=== PATIENT | male | born 1980 | race American Indian/Alaskan Native ===

== ENCOUNTER 2017-10-04 19:54 | Inpatient (IN) | payer OTHER ==
[2017-10-04 21:07] LABS: Bacteria,Urine 1+ /HPF (Negative); Bilirubin,Urine NEG (Negative); Blood,Urine SM (Negative); Color,Urine Yellow (Yellow); Mucus,Urine FEW /HPF; Nitrite,Urine NEG (Negative); Protein,Urine <15 mg/dL mg/dL (Negative); Urobilinogen,Urine < 2.0 mg/dL (<2.0)
[2017-10-04 21:12] LABS: Basophils % (Auto) 0.3 % (0.0-1.8); Eosinophils # (Auto) 0.1 K/mm3 (0.0-0.4); Eosinophils % (Auto) 1.4 % (0.0-4.3); Hematocrit 33.6 % (35.5-45.6); Hemoglobin 10.7 gm/dl (11.8-15.2); Lymphocytes # (Auto) 2.1 K/mm3 (1.2-5.4); Lymphocytes % (Auto) 26.3 % (13.4-35.0); Mean Corpuscular HGB Conc 32 % (32-34); Mean Corpuscular Hemoglobin 29 pg (28-32); Mean Corpuscular Volume 91 fl (84-94); Monocytes # (Auto) 0.7 K/mm3 (0.0-0.8); Platelet Count 195 K/mm3 (140-440); Red Cell Distribution Width 13.4 % (13.2-15.2)
[2017-10-04 21:27] LABS: BUN/Creatinine Ratio 12; Blood Urea Nitrogen 12 mg/dL (9-20); Calcium 8.5 mg/dL (8.4-10.2); Hemolysis Index 3
[2017-10-04] MEDS ORDERED: DILAUDID IV ONE (22:37)
[2017-10-04] MEDS ORDERED: ZOFRAN IV ONE (22:38)
--- NOTE | 2017-10-04 22:54 | Emergency Department Report ---
ED General Adult HPI - General Chief complaint: Extremity Injury, Lower Stated complaint: BODY PAIN,SWOLLEN ALL OVER Time Seen by Provider: 10/04/17 21:45 Source: patient Mode of arrival: Ambulatory Limitations: No Limitations - History of Present Illness Initial comments: This is a 37-year-old male diabetic who presents with bilateral lower extremity swelling as well as scrotal swelling. He states that about a month ago he noticed a blister on his left thigh. He said this burst and there was some clear drainage that followed. However the patient noted that swelling continued in the thigh and then in the groin and then both lower extremities. Today he states that he cannot walk due to the swelling in his groin and lower extremity. He denies fever at this time. -: Gradual Location: genitals, lower extremity Severity scale (0 -10): 10 Quality: constant Consistency: constant Improves with: none Worsens with: none Associated Symptoms: denies other symptoms Treatments Prior to Arrival: none - Related Data Allergies Allergy/AdvReac Type Severity Reaction Status Date / Time No Known Allergies Allergy Unverified 10/04/17 20:03 ED Review of Systems ROS: Stated complaint: BODY PAIN,SWOLLEN ALL OVER Other details as noted in HPI Comment: All other systems reviewed and negative Constitutional: see HPI ENT: as per HPI Respiratory: no symptoms reported Cardiovascular: as per HPI Endocrine: see HPI Gastrointestinal: as per HPI Genitourinary: as per HPI Musculoskeletal: as per HPI Skin: as per HPI Neurological: as per HPI Psychiatric: as per HPI Hematological/Lymphatic: as per HPI ED Past Medical Hx - Past Medical History Previous Medical History?: Yes Hx Diabetes: Yes - Surgical History Past Surgical History?: Yes Additional Surgical History: Tonsilectomy - Social History Smoking Status: Current Every Day Smoker Substance Use Type: None ED Physical Exam - General Limitations: No Limitations General appearance: alert, in distress - Head Head exam: Present: atraumatic - Eye Eye exam: Present: normal appearance, PERRL, EOMI - ENT ENT exam: Present: normal exam - Neck Neck exam: Present: normal inspection - Respiratory Respiratory exam: Present: normal lung sounds bilaterally. Absent: respiratory distress, wheezes, rales, rhonchi, stridor - Cardiovascular Cardiovascular Exam: Present: regular rate, normal rhythm, normal heart sounds - GI/Abdominal GI/Abdominal exam: Present: soft, normal bowel sounds. Absent: distended, tenderness, guarding, rebound, rigid - exam: Present: scrotal swelling - Extremities Exam Extremities exam: Present: other (edema to the lower extremities bilaterally, ulceration on the right lower extremity) ED Course Vital Signs 10/04/17 10/04/17 10/04/17 20:05 20:30 20:37 Temperature 97.8 F 98.1 F Pulse Rate 114 H 108 H 107 H Pulse Rate [ From Monitor] Respiratory 18 19 22 Rate Blood Pressure 144/81 O2 Sat by Pulse 98 97 Oximetry 10/04/17 10/04/17 10/04/17 20:58 21:00 21:16 Temperature Pulse Rate 107 H 104 H 113 H Pulse Rate [ From Monitor] Respiratory 16 31 H Rate Blood Pressure 143/87 143/87 143/87 O2 Sat by Pulse 99 99 Oximetry 10/04/17 10/04/17 10/04/17 21:30 21:46 23:06 Temperature Pulse Rate 112 H Pulse Rate [ 108 H From Monitor] Respiratory 24 19 Rate Blood Pressure 143/87 143/87 O2 Sat by Pulse 99 98 Oximetry - Reevaluation(s) Reevaluation #1: 10/04/17 22:55 The patient has developed a cellulitis that appears to originally started in the right lower extremity and spread to the groin and the left lower extremity. I discussed the findings with the hospitalist. We will go ahead and start the patient on Unasyn and give pain medications. I explained to the patient that he will need to be admitted. He stresses understanding. 10/04/17 23:15 ED Medical Decision Making - Lab Data Result diagrams: 10/04/17 20:35 10/04/17 20:35 Critical care attestation.: If time is entered above; I have spent that time in minutes in the direct care of this critically ill patient, excluding procedure time. ED Disposition Clinical Impression: Abscess or cellulitis of groin Disposition: OP ADMIT IP TO THIS HOSP Is pt being admited?: Yes Condition: Stable Referrals: LOUIE THAYER MD [Primary Care Provider] - 3-5 Days
--- NOTE | 2017-10-04 23:55 | Event Note ---
Date: 10/04/17 See dictated H/p in reports Scrotal cellulitis IDDM Rt Leg ulcer
[2017-10-05] MEDS ORDERED: ZOFRAN IV PRN (02:01)
[2017-10-05] MEDS ORDERED: MILK OF MAGNESIA PO PRN (02:01)
[2017-10-05] MEDS ORDERED: TYLENOL PO PRN (02:01)
[2017-10-05] MEDS ORDERED: DULCOLAX PR PRN (02:01)
[2017-10-05] MEDS ORDERED: PERCOCET 5/325 PO PRN (02:02)
[2017-10-05] MEDS ORDERED: AMBIEN PO PRN (02:02)
[2017-10-05] MEDS ORDERED: MORPHINE IV PRN (02:17)
[2017-10-05] MEDS ORDERED: NACL 0.9% 1000 ML 1,000 ML IV SCH (03:00)
[2017-10-05] MEDS ORDERED: VANCOMYCIN PHARMACY TO DOSE IV SCH (03:00)
[2017-10-05] MEDS ORDERED: VANCOMYCIN 1,500 MG in NACL 0.9% 500 ML 500 ML IV ONE (03:00)
[2017-10-05] MEDS: UNASYN/NS 3 GM/100 ML 3 GM/100 ML BAG IV SCH ×4 (03:14→22:36)
[2017-10-05] MEDS: DILAUDID IV PRN ×4 (05:20→23:07)
--- NOTE | 2017-10-05 07:40 | History and Physical Report ---
CHIEF COMPLAINT: Redness and swelling of the scrotum for the last 3-4 days. Also, right leg ulcer for 1 month. HISTORY OF PRESENT ILLNESS: A 37-year-old -[place] male with history of diabetes, comes in for a small ulcer on the right lower extremity mid part of the legs for the last one month. It looks like it is healing. In the meantime, over the last 4 days he developed severe scrotal swelling and penile swelling with spread of the infection to the upper thighs, both thighs. No relation to the right lower leg extremity ulcer. Low-grade fever is present. Pain is about 8 on a scale of 1-10, especially in the scrotum. He cannot walk due to the swelling in his groin and the lower extremity and has difficulty walking. No shortness of breath, no chest pain. No palpitations. No nausea, no vomiting. PAST MEDICAL HISTORY: Significant for diabetes. PAST SURGICAL HISTORY: Tonsillectomy. SOCIAL HISTORY: He smokes about a pack a day. FAMILY HISTORY: Hypertension. REVIEW OF SYSTEMS: Significant for swelling of the scrotum and redness and swelling of the penis with pain about 8/10 with infection spreading into both upper thighs. Otherwise, review of systems is essentially negative. PHYSICAL EXAMINATION: GENERAL: Young male, cooperative during examination. VITAL SIGNS: Blood pressure is 117/75, temperature is 97.5, pulse is 89, pulse rate is 108. HEENT: Unremarkable. Pupils are equal and reactive. NECK: Supple, no lymphadenopathy, no thyromegaly. LUNGS: Clear to auscultation and percussion. Good air entry. CARDIOVASCULAR: S1, S2 heard. No gallop, no murmur, no rub. Apical impulse in left fifth intercostal space and midclavicular line. ABDOMEN: Soft and benign. PELVIS: Scrotum is very enlarged, red and inflamed. Penis is also swollen. Near paraphimosis present. EXTREMITIES: Redness of the upper thigh present. Both sides, indurated. A 3 cm x 3 cm ulcer on the right lower extremity and lateral part of the leg. Stage 2 ulcer. Healing. Pedal pulses are well felt. SKIN: Otherwise normal. LABORATORY DATA: Significant for white count of 8100, hemoglobin of 10.7, hematocrit of 33.6, platelet count of 195,000. pH is 7.31. Sodium is 141, potassium is 4.2, BUN and creatinine is 12 and 1.0. Glucose is 146. Urine WBCs 14. ASSESSMENT AND PLAN: 1. Scrotal cellulitis with paraphimosis. Urology consult requested. The patient started on IV Unasyn and IV vancomycin for possible staph infection. Also, ID consult requested. Morphine for pain. 2. Right leg ulcer, healing. Wound Care consult requested. Wound care. 3. Same IV antibiotics, Unasyn and vancomycin to be continued. 4. Insulin-dependent diabetes. The patient is a poor historian, he does not tell me what dose he is taking. We will put him on coverage. Check hemoglobin A1c and then go on to 70/30 or basal bolus insulin. Depending on the patient's convenience and his education level. 5. Deep venous thrombosis prophylaxis, Lovenox 40 mg subcutaneous daily. JOB# [id number] SERGEY/NTS
--- NOTE | 2017-10-05 08:15 | Progress Note ---
Assessment and Plan -Scrotal cellulitis Local wound care Cound cx Continue with Vanc and Unisyn - Suprapubic mass: ? retention Will obtain a bladder Ultrasound. If no retention then a CT abdomnen and pelvis - IDDM SSI consistent CHO diet. A1c - 14.6% Alonzo pedal edema - Rt Leg ulcer Likely secondary to scrotal cellulites - DVT PPX with lovenox and GI with pepcid Discussed with pt and his mother who was in the room regarding, the Mx plan. Both expressd understanding PS Bladder outlet obstruction from CT abdomen and pelvis with mild alonzo hydronephrosis I suspect a pelvis mass causing alonzo pedal edema. Early pneumonia from CT abdomen: Will obtain CXR Subjective Date of service: 10/05/17 Principal diagnosis: scrotal cellulitis Interval history: Still has swelling of the scrotum with pain. Uncotrolled DM. No polyuria or polydysia Objective - Constitutional Vitals: Vital Signs - 12hr 10/04/17 10/04/17 10/04/17 20:30 20:37 20:58 Temperature 98.1 F Pulse Rate 108 H 107 H 107 H Pulse Rate [ From Monitor] Respiratory 19 22 Rate Blood Pressure 143/87 O2 Sat by Pulse 97 Oximetry 10/04/17 10/04/17 10/04/17 21:00 21:16 21:30 Temperature Pulse Rate 104 H 113 H 112 H Pulse Rate [ From Monitor] Respiratory 16 31 H 24 Rate Blood Pressure 143/87 143/87 143/87 O2 Sat by Pulse 99 99 99 Oximetry 10/04/17 10/04/17 10/04/17 21:46 22:00 23:06 Temperature Pulse Rate Pulse Rate [ 108 H From Monitor] Respiratory 19 Rate Blood Pressure 143/87 143/87 O2 Sat by Pulse 98 98 Oximetry 10/05/17 10/05/17 10/05/17 01:47 02:52 03:22 Temperature 97.5 F L Pulse Rate 89 Pulse Rate [ From Monitor] Respiratory 16 18 18 Rate Blood Pressure 117/75 O2 Sat by Pulse 98 Oximetry 10/05/17 10/05/17 05:20 05:50 Temperature Pulse Rate Pulse Rate [ From Monitor] Respiratory 18 18 Rate Blood Pressure O2 Sat by Pulse Oximetry General appearance: Present: no acute distress - EENT Eyes: PERRL, EOM intact - Neck Neck: supple, normal ROM - Respiratory Respiratory: bilateral: CTA - Cardiovascular Rhythm: regular Heart Sounds: Present: S1 & S2. Absent: gallop, rub Extremities: pulses intact, normal color (ulcer in the right leg), Full ROM Extremity abnormal: edema - Gastrointestinal General gastrointestinal: Present: soft, non-tender, non-distended, normal bowel sounds - Genitourinary Male genitourinary: normal - Integumentary Integumentary: clear, warm, dry - Musculoskeletal Musculoskeletal: 1, strength equal bilaterally - Neurologic Neurologic: moves all extremities - Psychiatric Psychiatric: memory intact, appropriate mood/affect, intact judgment & insight - Labs CBC & Chem 7: 10/04/17 20:35 10/05/17 18:12 Labs: Abnormal lab results 10/04/17 10/04/17 10/04/17 Range/Units 20:09 20:35 20:35 Hgb 10.7 L (11.8-15.2) gm/dl Hct 33.6 L (35.5-45.6) % [place] % (Auto) 9.0 H (0.0-7.3) % VBG pH (7.320-7.420) Glucose 146 H (75-100) mg/dL POC Glucose 222 H (70-105) Urine WBC (Auto) (0.0-6.0) /HPF 10/04/17 10/04/17 10/05/17 Range/Units 20:35 20:37 06:13 Hgb (11.8-15.2) gm/dl Hct (35.5-45.6) % [place] % (Auto) (0.0-7.3) % VBG pH 7.319 L (7.320-7.420) Glucose (75-100) mg/dL POC Glucose 160 H (70-105) Urine WBC (Auto) 14.0 H (0.0-6.0) /HPF
[2017-10-05] MEDS: NOVOLOG SUB-Q SCH ×4 (08:34→23:07)
[2017-10-05] MEDS: PEPCID PO SCH ×2 (09:12→22:36)
--- NOTE | 2017-10-05 15:40 | Cat Scan Report ---
CT ABDOMEN PELVIS WITH CONTRAST: HISTORY: Lower abdominal mass. COMPARISON: none. TECHNIQUE: Helical CT in 1.25mm intervals following IV contrast. Sagittal and coronal reconstructions. FINDINGS: Lung bases: There is subtle patchy groundglass infiltrate in the right lower lobe. An early pneumonia cannot be excluded. No pleural effusion. Normal heart size. Liver: Normal. Biliary system: Normal. Pancreas: Normal. Spleen: Normal. Kidneys/ureters/bladder: There is marked distention of the bladder with a simple appearing fluid. Mild bilateral hydronephrosis. There is normal enhancement in both kidneys and no focal lesion. Adrenal glands: Normal. Aorta: Normal. Intestines: Normal. Appendix: Normal. Ascites: None. Adenopathy: None. Musculoskeletal: Normal. IMPRESSION: Marketed distention of the bladder with mild hydronephrosis bilaterally. Bladder outlet obstruction is suspected. Subtle patchy infiltrate at the right lung base. Correlate for early pneumonia.
--- NOTE | 2017-10-05 16:55 | Progress Note ---
Assessment and Plan severe le edema ??CHF cath placed will eventally need curc poor hygiene leave [place] ct Subjective Date of service: 10/05/17 Principal diagnosis: scrotal edema Objective - Constitutional Vitals: Vital Signs - 12hr 10/05/17 10/05/17 10/05/17 05:20 05:50 09:35 Temperature 98.2 F Pulse Rate 91 H Respiratory 18 18 18 Rate Blood Pressure 138/95 O2 Sat by Pulse 98 Oximetry 10/05/17 15:26 Temperature 97.4 F L Pulse Rate 104 H Respiratory 20 Rate Blood Pressure 157/103 O2 Sat by Pulse 98 Oximetry General appearance: Present: mild distress - Respiratory Respiratory effort: normal Extremities: abnormal Extremity abnormal: edema - Genitourinary Male genitourinary: tender, penile edema, scrotal edema - Labs CBC & Chem 7: 10/04/17 20:35 10/04/17 20:35 Labs: Abnormal lab results 10/04/17 10/04/17 10/04/17 Range/Units 20:09 20:35 20:35 Hgb 10.7 L (11.8-15.2) gm/dl Hct 33.6 L (35.5-45.6) % [place] % (Auto) 9.0 H (0.0-7.3) % VBG pH (7.320-7.420) Glucose 146 H (75-100) mg/dL POC Glucose 222 H (70-105) Hemoglobin A1c (4-6) % Urine WBC (Auto) (0.0-6.0) /HPF 10/04/17 10/04/17 10/05/17 Range/Units 20:35 20:37 06:13 Hgb (11.8-15.2) gm/dl Hct (35.5-45.6) % [place] % (Auto) (0.0-7.3) % VBG pH 7.319 L (7.320-7.420) Glucose (75-100) mg/dL POC Glucose 160 H (70-105) Hemoglobin A1c (4-6) % Urine WBC (Auto) 14.0 H (0.0-6.0) /HPF 10/05/17 Range/Units 07:02 Hgb (11.8-15.2) gm/dl Hct (35.5-45.6) % [place] % (Auto) (0.0-7.3) % VBG pH (7.320-7.420) Glucose (75-100) mg/dL POC Glucose (70-105) Hemoglobin A1c 14.6 H (4-6) % Urine WBC (Auto) (0.0-6.0) /HPF
--- NOTE | 2017-10-05 17:49 | Consultation ---
History of Present Illness - Reason for Consult Consult date: 10/05/17 cellulitis Requesting physician: DENYS SAENZ - History of Present Illness 37 years old male with uncontrolled diabetes; admitted 10/04/17 due to a month hsitory history of progressive bilateral lower extremity edema, scrotal edema up and 90 edema. Patient reported that he has some blisters on the left leg which are then drained clear liquid and became a sore. He denies any insect bites or trauma. He denies any history of liver or heart failure. Patient reports that during the last 48 hours he was unable to walk or lie flat due to severe swelling of his scrotum associated with erythema and tenderness. Denies any recent international trips or exposure to parasites. In the ED, initial temperature was 97.8, heart rate 114, respiration 18, O2 sat 98%, blood pressure 144/81. Initial white count 8.1. Hemoglobin 10.7. Platelets 195. Creatinine 1. Hemoglobin A1c 14.6. Glucose 222. UA showed large leukocyte esterase and 14 white blood cells. Microbiology: none Current Antimicrobials: aguilarsyorlando mustafa Previous Antimicrobials: Past History Past Medical History: diabetes Past Surgical History: No surgical history Social history: no significant social history Family history: no significant family history Medications and Allergies Allergies Allergy/AdvReac Type Severity Reaction Status Date / Time No Known Allergies Allergy Verified 10/05/17 02:15 Active Meds: Active Medications Acetaminophen (Tylenol) 650 mg PO Q4H PRN PRN Reason: Pain MILD(1-3)/Fever >100.5/SAEED Bisacodyl (Dulcolax) 10 mg MA QDAY PRN PRN Reason: Constipation unrelieved by MOM Enoxaparin Sodium (Lovenox) 40 mg SUB-Q QDAY@2200 [facility] Famotidine (Pepcid) 20 mg PO BID [facility] Last Admin: 10/05/17 09:12 Dose: 20 mg Hydrocortisone Acetate (Hydrocortisone Cr) 1 applic TP Q8H PRN PRN Reason: Skin Irritation Hydromorphone HCl (Dilaudid) 1 mg IV Q3H PRN PRN Reason: Pain , Severe (7-10) Last Admin: 10/05/17 16:01 Dose: 1 mg Ampicillin Sodium/Sulbactam Sodium (Unasyn/Ns 3 Gm/100 Ml) 3 gm in 100 mls @ 100 mls/hr IV Q6H [facility] PRN Reason: Protocol Last Admin: 10/05/17 17:38 Dose: 100 mls/hr Vancomycin HCl 1,250 mg/ (Sodium Chloride) 262.5 mls @ 166.667 mls/hr IV Q12H [facility] Insulin Aspart (Novolog) 0 units SUB-Q ACHS DEIDRE PRN Reason: Protocol Last Admin: 10/05/17 12:30 Dose: Not Given Magnesium Hydroxide (Milk Of Magnesia) 30 ml PO Q4H PRN PRN Reason: Constipation Morphine Sulfate (Morphine) 2 mg IV Q4H PRN PRN Reason: Pain, Moderate (4-6) Last Admin: 10/05/17 02:52 Dose: 2 mg Ondansetron HCl (Zofran) 4 mg IV Q8H PRN PRN Reason: N/V unrelieved by Reglan Oxycodone/Acetaminophen (Percocet 5/325) 1 tab PO Q6H PRN PRN Reason: Pain, Moderate (4-6) Vancomycin HCl (Vancomycin Pharmacy To Dose) 1 each IV PKCONSULT DEIDRE PRN Reason: Protocol Zolpidem Tartrate (Ambien) 5 mg PO QHS PRN PRN Reason: Insomnia Physical Examination - Physical Exam Narrative exam: General appearance: Alert in NAD, conversant Eyes: anicteric sclerae, moist conjunctivae; no lid-lag; PERRLA HENT: Atraumatic; oropharynx clear with moist mucous membranes and no mucosal ulcerations/no oral thrush; normal hard and soft palate. Normal external ears. Neck: Trachea midline; supple, no thyromegaly or lymphadenopathy Lungs: CTA, with normal respiratory effort and no intercostal retractions CV: RRR, no murmurs Abdomen: Soft, non-tender; no masses or hepatosplenomegaly Extremities: +severe britta thighs / calves / ankles edema Gen: +marked penile and scrotal edema with erythema Skin: +left lef ulcer no purulence, britta medial thigh rash Psych: Appropriate affect, alert and oriented to person, place and time. Neuro: alert and oriented x 3. Moving all extermities Lines: No CVL / PICC - Constitutional Vitals: Vital Signs Temp Pulse Resp BP Pulse Ox 97.4 F L 104 H 20 157/103 98 10/05/17 15:26 10/05/17 15:26 10/05/17 15:26 10/05/17 15:26 10/05/17 15:26 Temperature -Last 24 Hours Temperature 97.4 F Temperature 98.2 F Temperature 97.5 F Temperature 98.1 F Temperature 97.8 F Results - Labs CBC & Chem 7: 10/04/17 20:35 10/04/17 20:35 Labs: Abnormal lab results 10/04/17 10/04/17 10/04/17 Range/Units 20:09 20:35 20:35 Hgb 10.7 L (11.8-15.2) gm/dl Hct 33.6 L (35.5-45.6) % [place] % (Auto) 9.0 H (0.0-7.3) % VBG pH (7.320-7.420) Glucose 146 H (75-100) mg/dL POC Glucose 222 H (70-105) Hemoglobin A1c (4-6) % Urine WBC (Auto) (0.0-6.0) /HPF 10/04/17 10/04/17 10/05/17 Range/Units 20:35 20:37 06:13 Hgb (11.8-15.2) gm/dl Hct (35.5-45.6) % [place] % (Auto) (0.0-7.3) % VBG pH 7.319 L (7.320-7.420) Glucose (75-100) mg/dL POC Glucose 160 H (70-105) Hemoglobin A1c (4-6) % Urine WBC (Auto) 14.0 H (0.0-6.0) /HPF 10/05/17 10/05/17 10/05/17 Range/Units 07:02 12:01 17:36 Hgb (11.8-15.2) gm/dl Hct (35.5-45.6) % [place] % (Auto) (0.0-7.3) % VBG pH (7.320-7.420) Glucose (75-100) mg/dL POC Glucose 144 H 352 H (70-105) Hemoglobin A1c 14.6 H (4-6) % Urine WBC (Auto) (0.0-6.0) /HPF Assessment and Plan Assessment: 1) Extensive bilateral legs edema / anasarca: ? etiology ? cardiac failure ? liver failure. Kidney function is normal 2) Marked Scrotal edema with cellulitis 3) Britta thigh rash ? contact dermatitis ? fungal 4) Anemia 5) DM-poorly controlled 6) UTI 7) Bladder distention ? 8) RLL infiltrate on CT ? pneumonia Plan: -check CMP -obtain TTE -follow-up urine culture -obtain procalcitonin, C-reactive protein (CRP) -continue vanco and unasyn for now -scrotal elevation -Urology eval ? uzair Thank you for your consultation, will follow up with you. Ramila Kim MD Infectious Diseases Specialist [facility] ([facility]) M [phone] O [phone]
[2017-10-05] MEDS ORDERED: HYDROCORTISONE CR TP PRN (18:00)
[2017-10-05 18:56] LABS: Alanine Aminotransferase 34 units/L (7-56); Albumin 3.5 g/dL (3.9-5); BUN/Creatinine Ratio 11; Blood Urea Nitrogen 10 mg/dL (9-20); Calcium 8.1 mg/dL (8.4-10.2); Hemolysis Index 5
[2017-10-05] MEDS: VANCOMYCIN 1,250 MG in NACL 0.9% 250ML 250 ML IV SCH (19:38)
[2017-10-05] MEDS: LOVENOX SUB-Q SCH (22:35)
--- NOTE | 2017-10-06 02:19 | XRay Report ---
FINAL REPORT EXAM: XR CHEST ROUTINE 2V HISTORY: Pneumonia COMPARISON: None available. FINDINGS:: Frontal and lateral views of the chest obtained. Cardiac silhouette is within normal limits. No focal consolidation or effusion. No pneumothorax. Visualized bony thorax is grossly intact. IMPRESSION:: No acute findings.
[2017-10-06] MEDS: UNASYN/NS 3 GM/100 ML 3 GM/100 ML BAG IV SCH ×4 (03:22→20:53)
--- NOTE | 2017-10-06 05:22 | Consultation ---
HISTORY OF PRESENT ILLNESS: The patient is a 37-year-old gentleman who looks much older than his age with severe lower extremity scrotal and penile edema. He says this just happened a few days ago, but very suspicious. He had severe inflammation inside the foreskin, lots of smegma. He is diabetic. I do not think that he has been able to retract the skin for a while. The scrotum had severe scrotal edema and lower extremity pitting edema. He has a full bladder. Urological consultation was obtained. PAST MEDICAL HISTORY: As mentioned above. PAST SURGICAL HISTORY: Denied surgery. SOCIAL HISTORY: Denies drug abuse. REVIEW OF SYSTEMS: He had some sort of infection in the right lower extremity. PHYSICAL EXAMINATION: GENERAL: He is in moderate discomfort. EXTREMITIES: He has got severe lower extremity 3+ pitting edema. GENITOURINARY: The scrotum was 3+ edematous. He is uncircumcised with the penis severely swollen. There is no redness or cellulitis. No warmth. With pressure, we were able to reduce some of the foreskin minimally to see the meatus and a 16-Nesbitt catheter was placed. Large diuresis was obtained. PLAN: Check CT scan, possible cardiology evaluation for heart failure. He needs a full workup for circulation and possibly Infectious Disease evaluation. JOB# [id number] EBER/MARGARITO
[2017-10-06] MEDS: DILAUDID IV PRN ×5 (05:50→23:36)
[2017-10-06] MEDS: VANCOMYCIN 1,250 MG in NACL 0.9% 250ML 250 ML IV SCH (05:53)
[2017-10-06 07:13] LABS: Basophils % (Auto) 0.4 % (0.0-1.8); Eosinophils # (Auto) 0.1 K/mm3 (0.0-0.4); Eosinophils % (Auto) 1.2 % (0.0-4.3); Hematocrit 34.5 % (35.5-45.6); Hemoglobin 11.4 gm/dl (11.8-15.2); Lymphocytes # (Auto) 2.2 K/mm3 (1.2-5.4); Lymphocytes % (Auto) 20.8 % (13.4-35.0); Mean Corpuscular HGB Conc 33 % (32-34); Mean Corpuscular Hemoglobin 29 pg (28-32); Mean Corpuscular Volume 88 fl (84-94); Monocytes # (Auto) 0.9 K/mm3 (0.0-0.8); Monocytes % (Auto) 8.8 % (0.0-7.3); Platelet Count 218 K/mm3 (140-440)
[2017-10-06 07:19] LABS: Alanine Aminotransferase 30 units/L (7-56); BUN/Creatinine Ratio 10; Blood Urea Nitrogen 8 mg/dL (9-20); Hemolysis Index 10
[2017-10-06] MEDS: NOVOLOG SUB-Q SCH ×4 (08:30→21:28)
--- NOTE | 2017-10-06 10:39 | Progress Note ---
Assessment and Plan Assessment: 1) Extensive bilateral legs edema / anasarca: ? etiology- unclear - cardiac failure, liver failure, Kidney function all ruled out. ? Hypothyroidism -CRP = 0.10 -EF normal 2) Marked Scrotal edema with cellulitis-better 3) Alonzo thigh rash ? contact dermatitis ? fungal 4) Anemia, better 5) DM-poorly controlled 6) UTI -UA showed WBC = 14 7) Bladder distention ? -dunne placed 8) RLL infiltrate on CT ? pneumonia Plan: -obtain TSH and HIV panel, RPR -follow-up urine culture -f/u procalcitonin -continue unasyn day 2 -stop vanco -continue scrotal elevation -f/u with urologist -upon discharge will do keflex 500 mg q 6hrs total 10 days until 10/14 Thank you for your consultation, will follow up with you. Dasia Kohler NP for Dr. Ramila Kim MD Infectious Diseases Specialist [facility] ([facility]) M [phone] O [phone] Subjective Date of service: 10/06/17 Principal diagnosis: scrotal cellulitis Interval history: Microbiology: none Current Antimicrobials: unasyn vanco Previous Antimicrobials: Objective - Exam Narrative Exam: General appearance: Alert in NAD, conversant Eyes: anicteric sclerae, moist conjunctivae; no lid-lag; PERRLA HENT: Atraumatic; oropharynx clear with moist mucous membranes and no mucosal ulcerations/no oral thrush; Neck: Trachea midline; supple, no thyromegaly or lymphadenopathy Lungs: CTA, with normal respiratory effort and no intercostal retractions CV: RRR, no murmurs Abdomen: Soft, non-tender; no masses or hepatosplenomegaly Extremities: +severe alonzo thighs / calves / ankles edema Gen: +marked penile and scrotal edema with erythema Skin: +left lef ulcer no purulence, alonzo medial thigh rash Psych: Appropriate affect, calm and cooperative Neuro: alert and oriented x 3. Moving all extermities Lines: No CVL / PICC - Constitutional Vitals: Vital Signs Temp Pulse Resp BP Pulse Ox 98.2 F 94 H 20 152/91 97 10/06/17 07:27 10/06/17 07:27 10/06/17 07:27 10/06/17 07:27 10/06/17 07:27 Temperature -Last 24 Hours Temperature 98.2 F Temperature 98.1 F Temperature 97.4 F - Labs CBC & Chem 7: 10/06/17 06:01 10/06/17 06:01 Labs: Abnormal lab results 10/05/17 10/05/17 10/05/17 Range/Units 12:01 17:36 18:12 Hgb (11.8-15.2) gm/dl Hct (35.5-45.6) % RDW (13.2-15.2) % [place] % (Auto) (0.0-7.3) % [place] # (0.0-0.8) K/mm3 Sodium 136 L (137-145) mmol/L Potassium 5.1 H D (3.6-5.0) mmol/L BUN (9-20) mg/dL Glucose 371 H (75-100) mg/dL POC Glucose 144 H 352 H (70-105) Calcium 8.1 L (8.4-10.2) mg/dL Magnesium (1.7-2.3) mg/dL AST 51 H (5-40) units/L Total Protein 5.4 L (6.3-8.2) g/dL Albumin 3.5 L (3.9-5) g/dL 10/05/17 10/06/17 10/06/17 Range/Units 22:39 06:01 06:01 Hgb 11.4 L (11.8-15.2) gm/dl Hct 34.5 L (35.5-45.6) % RDW 13.0 L (13.2-15.2) % [place] % (Auto) 8.8 H (0.0-7.3) % [place] # 0.9 H (0.0-0.8) K/mm3 Sodium (137-145) mmol/L Potassium (3.6-5.0) mmol/L BUN 8 L (9-20) mg/dL Glucose 162 H (75-100) mg/dL POC Glucose 215 H (70-105) Calcium 8.0 L (8.4-10.2) mg/dL Magnesium 1.60 L (1.7-2.3) mg/dL AST 44 H (5-40) units/L Total Protein 5.4 L (6.3-8.2) g/dL Albumin 3.0 L (3.9-5) g/dL
[2017-10-06] MEDS: PEPCID PO SCH ×2 (11:29→21:21)
[2017-10-06] MEDS: LASIX IV SCH (15:27)
--- NOTE | 2017-10-06 16:33 | Progress Note ---
Assessment and Plan Assessment and plan: Patient is a 37-year-old male with diabetes who presents with bilateral lower extremity swelling as well as scrotal swelling. He states that about a month ago he noticed a blister on his left thigh. He said this burst and there was some clear drainage that followed. However the patient noted that swelling continued in the thigh and then in the groin and then both lower extremities. Today he states that he cannot walk due to the swelling in his groin and lower extremity. He denies fever at this time. Hyperosmolar, Non Ketotic Hyperglycemia * Pt remains with elevated Blood glucose, Will give additional insulin coverage. counselling provided. Scrotal cellulites * Continue unaysn, vanco stopped * Dunne placed by urology, patient will be discharged with DM-uncontrolled * As mentioned above Anemia * Stable, will monitor B/l lower ext Edema * ?etilogy, ?vasculitis, will obtain nephrology input Acute cystitis * Likely secondary to scrotal edema * Continue abx * Follow urine cultures Rt Leg ulcer * Continue abx DVT/GI prophy Plan of are discussed with patient and family in detail History Interval history: Patient seen and examined in no acute distress. mild improvement since dunne was placed but still with elevated bilateral lower ext edema Hospitalist Physical - Constitutional Vitals: Temp Pulse Resp BP Pulse Ox 97.9 F 108 H 15 135/86 97 10/06/17 14:50 10/06/17 14:50 10/06/17 14:50 10/06/17 14:50 10/06/17 14:50 General appearance: Present: no acute distress, well-nourished - EENT Eyes: Present: PERRL, EOM intact ENT: hearing intact, clear oral mucosa - Neck Neck: Present: supple, normal ROM - Respiratory Respiratory effort: normal Respiratory: bilateral: CTA - Cardiovascular Rhythm: regular Heart Sounds: Present: S1 & S2. Absent: systolic murmur, diastolic murmur - Extremities Extremities: no ischemia, pulses intact, Full ROM Extremity abnormal: edema (+2 bilaterally) Peripheral Pulses: within normal limits - Abdominal General gastrointestinal: soft, non-tender, non-distended - Integumentary Integumentary: Present: clear, erythema, pale - Psychiatric Psychiatric: appropriate mood/affect, intact judgment & insight - Neurologic Neurologic: CNII-XII intact - Additional findings Additional findings: Dunne in place - Allied Health Allied health notes reviewed: nursing Results - Labs CBC & Chem 7: 10/06/17 06:01 10/06/17 21:31 Labs: Laboratory Last Values WBC 10.7 K/mm3 (4.5-11.0) 10/06/17 06:01 RBC 3.90 M/mm3 (3.65-5.03) 10/06/17 06:01 Hgb 11.4 gm/dl (11.8-15.2) L 10/06/17 06:01 Hct 34.5 % (35.5-45.6) L 10/06/17 06:01 MCV 88 fl (84-94) 10/06/17 06:01 MCH 29 pg (28-32) 10/06/17 06:01 MCHC 33 % (32-34) 10/06/17 06:01 RDW 13.0 % (13.2-15.2) L 10/06/17 06:01 Plt Count 218 K/mm3 (140-440) 10/06/17 06:01 Lymph % (Auto) 20.8 % (13.4-35.0) 10/06/17 06:01 [place] % (Auto) 8.8 % (0.0-7.3) H 10/06/17 06:01 Eos % (Auto) 1.2 % (0.0-4.3) 10/06/17 06:01 Baso % (Auto) 0.4 % (0.0-1.8) 10/06/17 06:01 Lymph # 2.2 K/mm3 (1.2-5.4) 10/06/17 06:01 [place] # 0.9 K/mm3 (0.0-0.8) H 10/06/17 06:01 Eos # 0.1 K/mm3 (0.0-0.4) 10/06/17 06:01 Baso # 0.0 K/mm3 (0.0-0.1) 10/06/17 06:01 Seg Neutrophils % 68.8 % (40.0-70.0) 10/06/17 06:01 Seg Neutrophils # 7.4 K/mm3 (1.8-7.7) 10/06/17 06:01 VBG pH 7.319 (7.320-7.420) L 10/04/17 20:35 Sodium 137 mmol/L (137-145) 10/06/17 06:01 Potassium 4.1 mmol/L (3.6-5.0) 10/06/17 06:01 Chloride 102.1 mmol/L (98-107) 10/06/17 06:01 Carbon Dioxide 25 mmol/L (22-30) 10/06/17 06:01 Anion Gap 14 mmol/L 10/06/17 06:01 BUN 8 mg/dL (9-20) L 10/06/17 06:01 Creatinine 0.8 mg/dL (0.8-1.5) 10/06/17 06:01 Estimated GFR > 60 ml/min 10/06/17 06:01 BUN/Creatinine Ratio 10 % 10/06/17 06:01 Glucose 162 mg/dL (75-100) H 10/06/17 06:01 POC Glucose 350 (70-105) H 10/06/17 11:16 Hemoglobin A1c 14.6 % (4-6) H 10/05/17 07:02 Calcium 8.0 mg/dL (8.4-10.2) L 10/06/17 06:01 Phosphorus 2.60 mg/dL (2.5-4.5) 10/06/17 06:01 Magnesium 1.60 mg/dL (1.7-2.3) L 10/06/17 06:01 Total Bilirubin 0.40 mg/dL (0.1-1.2) 10/06/17 06:01 AST 44 units/L (5-40) H 10/06/17 06:01 ALT 30 units/L (7-56) 10/06/17 06:01 Alkaline Phosphatase 67 units/L (35-129) 10/06/17 06:01 C-Reactive Protein 0.10 mg/dL (0.00-1.30) 10/05/17 18:12 NT-Pro-B Natriuret Pep 240.6 pg/mL (0-450) 10/06/17 06:01 Total Protein 5.4 g/dL (6.3-8.2) L 10/06/17 06:01 Albumin 3.0 g/dL (3.9-5) L 10/06/17 06:01 Albumin/Globulin Ratio 1.3 % 02/06/18 06:01 Urine Color Yellow (Yellow) 10/04/17 20:37 Urine Turbidity Clear (Clear) 10/04/17 20:37 Urine pH 5.0 (5.0-7.0) 10/04/17 20:37 Ur Specific [place] 1.015 (1.003-1.030) 10/04/17 20:37 Urine Protein <15 mg/dl mg/dL (Negative) 10/04/17 20:37 Urine Glucose (UA) >=500 mg/dL (Negative) 10/04/17 20:37 Urine Ketones Neg mg/dL (Negative) 10/04/17 20:37 Urine Blood Sm (Negative) 10/04/17 20:37 Urine Nitrite Neg (Negative) 10/04/17 20:37 Urine Bilirubin Neg (Negative) 10/04/17 20:37 Urine Urobilinogen < 2.0 mg/dL (<2.0) 10/04/17 20:37 Ur Leukocyte Esterase Lg (Negative) 10/04/17 20:37 Urine WBC (Auto) 14.0 /HPF (0.0-6.0) H 10/04/17 20:37 Urine RBC (Auto) 20.0 /HPF (0.0-6.0) 10/04/17 20:37 U Epithel Cells (Auto) 2.0 /HPF (0-13.0) 10/04/17 20:37 Urine Bacteria (Auto) 1+ /HPF (Negative) 10/04/17 20:37 Urine Mucus Few /HPF 10/04/17 20:37 - Imaging and Cardiology Chest x-ray: image reviewed (no acute pathology) Abdominal x-ray: image reviewed (bladder outlet obstruction)
[2017-10-06] MEDS: LOVENOX SUB-Q SCH (21:21)
[2017-10-07 00:23] LABS: BUN/Creatinine Ratio 12; Blood Urea Nitrogen 13 mg/dL (9-20); Calcium 8.8 mg/dL (8.4-10.2); Hemolysis Index 5
[2017-10-07] MEDS: UNASYN/NS 3 GM/100 ML 3 GM/100 ML BAG IV SCH ×2 (02:30→10:28)
[2017-10-07] MEDS: DILAUDID IV PRN ×4 (02:31→15:13)
[2017-10-07] MEDS ORDERED: D50W (25GM) Syringe IV ONE ×2 (05:23→05:37)
[2017-10-07] MEDS: LASIX IV SCH (06:52)
[2017-10-07 08:45] LABS: BUN/Creatinine Ratio 12; Blood Urea Nitrogen 11 mg/dL (9-20); Calcium 8.7 mg/dL (8.4-10.2); Hemolysis Index 15
--- NOTE | 2017-10-07 09:36 | Consultation ---
History of Present Illness - Reason for Consult Consult date: 10/07/17 hyperkalemia, other (Anasarca, Bladder outlet obstruction) - History of Present Illness The patient is a 37-year-old AAM with history significant for Type 1 DM for about 10 years who presented to the ER with bilateral lower extremity and scrotal swelling. He first noticed the swelling aboout a month ago and it has gradually progressed. Patient also states decreased urine output for the past week. History is also positive for right leg ulcer and chronic diarrhea. Patient denies any N, V, abd pain, dizziness, hematuria, dysuria, fever or sob. He was found to have bladder outlet obstruction. Past History Past Medical History: diabetes Past Surgical History: No surgical history Social history: no significant social history Family history: no significant family history Medications and Allergies Allergies Allergy/AdvReac Type Severity Reaction Status Date / Time No Known Allergies Allergy Verified 10/05/17 02:15 Home Medications Medication Instructions Recorded Confirmed Last Taken Type Insulin NPH/Regular [Novolin 70/30] 28 unit SQ BID 10/06/17 10/06/17 Unknown History Active Meds: Active Medications Acetaminophen (Tylenol) 650 mg PO Q4H PRN PRN Reason: Pain MILD(1-3)/Fever >100.5/SAEED Bisacodyl (Dulcolax) 10 mg ID QDAY PRN PRN Reason: Constipation unrelieved by MOM Enoxaparin Sodium (Lovenox) 40 mg SUB-Q QDAY@2200 [facility] Last Admin: 10/06/17 21:21 Dose: 40 mg Famotidine (Pepcid) 20 mg PO BID [facility] Last Admin: 10/06/17 21:21 Dose: 20 mg Furosemide (Lasix) 40 mg IV 0600,1800 [facility] Last Admin: 10/07/17 06:52 Dose: 40 mg Hydrocortisone Acetate (Hydrocortisone Cr) 1 applic TP Q8H PRN PRN Reason: Skin Irritation Last Admin: 10/05/17 19:38 Dose: 1 applic Hydromorphone HCl (Dilaudid) 1 mg IV Q3H PRN PRN Reason: Pain , Severe (7-10) Last Admin: 10/07/17 06:52 Dose: 1 mg Ampicillin Sodium/Sulbactam Sodium (Unasyn/Ns 3 Gm/100 Ml) 3 gm in 100 mls @ 100 mls/hr IV Q6H [facility] PRN Reason: Protocol Last Admin: 10/07/17 02:30 Dose: 100 mls/hr Insulin Aspart (Novolog) 0 units SUB-Q ACHS [facility] PRN Reason: Protocol Last Admin: 10/06/17 21:28 Dose: 8 units Insulin Human Isoph/Insulin Regular (Novolin 70/30) 25 unit SUB-Q BIDDIAB [facility] Last Admin: 10/06/17 17:39 Dose: 25 unit Magnesium Hydroxide (Milk Of Magnesia) 30 ml PO Q4H PRN PRN Reason: Constipation Morphine Sulfate (Morphine) 2 mg IV Q4H PRN PRN Reason: Pain, Moderate (4-6) Last Admin: 10/05/17 02:52 Dose: 2 mg Ondansetron HCl (Zofran) 4 mg IV Q8H PRN PRN Reason: N/V unrelieved by Reglan Oxycodone/Acetaminophen (Percocet 5/325) 1 tab PO Q6H PRN PRN Reason: Pain, Moderate (4-6) Zolpidem Tartrate (Ambien) 5 mg PO QHS PRN PRN Reason: Insomnia Review of Systems Constitutional: no weight loss, no weight gain, no fever, no chills, no anorexia Ears, nose, mouth and throat: no epistaxis Cardiovascular: edema, leg edema, no chest pain, no orthopnea, no syncope, no lightheadedness, no shortness of breath, no high blood pressure Respiratory: no cough, no hemoptysis, no shortness of breath, no dyspnea on exertion Gastrointestinal: diarrhea, no abdominal pain, no nausea, no vomiting, no melena , no jaundice Genitourinary Male: urinary retention, no dysuria, no hematuria, no kidney stones Rectal: no bleeding Musculoskeletal: no redness of joints, no muscle weakness Integumentary: sores, wounds, no rash Neurological: no paralysis, no syncope, no vertigo, no headaches Psychiatric: no disorientation Endocrine: no weight change Hematologic/Lymphatic: no easy bruising, no easy bleeding Allergic/Immunologic: no wheezing Exam - Vital Signs Vital signs: Vital Signs Temp Pulse Resp BP Pulse Ox 97.8 F 114 H 18 144/81 98 10/04/17 20:05 10/04/17 20:05 10/04/17 20:05 10/04/17 20:05 10/04/17 20:05 - General Appearance General appearance: well-developed, well-nourished, appears stated age, other ( no distress) EENT: ATNC, PERRL, hearing intact, vision intact Neck: Present: neck supple, trachea midline Respiratory: Clear to Ascultation Heart: regular, S1S2, no murmurs Gastrointestinal: Present: normoactive bowel sounds, other (dunne catheter, edema of scrotum and penis noted). Absent: tenderness, distended Integumentary: no rash, ulcer (right leg) Neurologic: no focal deficit, no asterixis, alert and oriented x3 Musculoskeletal: Present: other (2+ edema of both LEs noted) Psychiatric: mood/affect appropriate, cooperative Results - Lab Results 10/06/17 06:01 10/07/17 07:26 Most recent lab results Calcium 8.7 mg/dL (8.4-10.2) 10/07/17 07:26 Phosphorus 2.60 mg/dL (2.5-4.5) 10/06/17 06:01 Magnesium 1.70 mg/dL (1.7-2.3) 10/07/17 07:26 - Image Kidney/bladder ultrasound: other Assessment and Plan 1. Bladder outlet obstruction: S/p dunne catheter. Urology consulted. 2. Volume overload: Hypoalbuminemia noted. No protein in UA. Spot Urine protein quantification ordered. 3. Hyperkalemia: Improved. 4. DM type 1. Will follow.
[2017-10-07] MEDS: NOVOLOG SUB-Q SCH ×2 (10:05→12:28)
[2017-10-07] MEDS: PEPCID PO SCH (10:29)
--- NOTE | 2017-10-07 10:39 | Progress Note ---
Assessment and Plan Assessment: 1) Extensive bilateral legs edema / anasarca: ? etiology- unclear - cardiac failure, liver failure, Kidney function all ruled out. ? Hypothyroidism -CRP = 0.10 -EF normal -TSH normal -HIV non reactive 2) Marked Scrotal edema with cellulitis-better 3) Alonzo thigh rash ? contact dermatitis ? fungal 4) Anemia, better 5) DM-poorly controlled 6) UTI -UA showed WBC = 14 7) Bladder distention ? -dunne placed 8) RLL infiltrate on CT ? pneumonia Plan: -f/u procalcitonin -continue unasyn day 3 -continue scrotal elevation -f/u with urologist -upon discharge will do keflex 500 mg q 6hrs total 10 days until 10/14 we will sign off Thank you for your consultation, will follow up with you. Dasia Kohler NP for Dr. Ramila Kim MD Infectious Diseases Specialist [facility] ([facility]) M [phone] O [phone] Subjective Date of service: 10/07/17 Principal diagnosis: scrotal cellulitis Interval history: I would like dressing change to my right foot, no fever Microbiology: none Current Antimicrobials: unasyn vanco Previous Antimicrobials: Objective - Exam Narrative Exam: General appearance: Alert in NAD, conversant Eyes: anicteric sclerae, moist conjunctivae; no lid-lag; PERRLA HENT: Atraumatic; oropharynx clear with moist mucous membranes and no mucosal ulcerations/no oral thrush; Neck: Trachea midline; supple, no thyromegaly or lymphadenopathy Lungs: CTA, with normal respiratory effort and no intercostal retractions CV: RRR, no murmurs Abdomen: Soft, non-tender; no masses or hepatosplenomegaly Extremities: +severe alonzo thighs / calves / ankles edema Gen: +marked penile and scrotal edema with erythema Skin: +left lef ulcer no purulence, alonzo medial thigh rash Psych: Appropriate affect, calm and cooperative Neuro: alert and oriented x 3. Moving all extermities Lines: No CVL / PICC - Constitutional Vitals: Vital Signs Temp Pulse Resp BP Pulse Ox 97.3 F L 81 18 133/92 100 10/07/17 08:12 10/07/17 08:12 10/07/17 08:12 10/07/17 08:12 10/07/17 08:12 Temperature -Last 24 Hours Temperature 97.3 F Temperature 98.7 F Temperature 97.9 F - Labs CBC & Chem 7: 10/06/17 06:01 10/07/17 07:26 Labs: Abnormal lab results 10/06/17 10/06/17 10/06/17 Range/Units 11:16 16:26 21:19 Chloride (98-107) mmol/L Glucose (75-100) mg/dL POC Glucose 350 H 453 H > 500 H (70-105) 10/06/17 10/06/17 10/07/17 Range/Units 21:31 23:29 05:24 Chloride 94.3 L (98-107) mmol/L Glucose 528 H* 263 H (75-100) mg/dL POC Glucose < 40 L (70-105) 10/07/17 10/07/17 Range/Units 05:48 07:26 Chloride 94.7 L (98-107) mmol/L Glucose 112 H (75-100) mg/dL POC Glucose 171 H (70-105)
[2017-10-07] MEDS ORDERED: IMODIUM PO STA (11:51)
--- NOTE | 2017-10-07 13:24 | Discharge Summary ---
Providers - Providers Date of Admission: 10/04/17 23:16 Attending physician: JOSEFINA CRANDALL MD 10/05/17 Consult to Case Management [CONS] Routine Services Needed at Discharge: Home Health Services Surgical Supervisor Notified:: COPY LEFT FOR CM 10/05/17 02:02 Consult to Physician [CONS] Routine Consulting Provider: ROBERTO OAKES Reason For Exam: Cellulitis Place consult to:: KAILA Notified:: KAILA Phone number called:: IN HOUSE Was contact made?: Yes If yes, spoke with:: KAILA Time called:: 09:15 10/05/17 06:40 Consult to Physician [CONS] Routine Consulting Provider: MOHINI WEBSTER Reason For Exam: Scrotal cellulitis Place consult to:: DR. JOHNSON TO CALL DR. WEBSTER Notified:: DR. JOHNSON TO CALL DR. WEBSTER Comment:: MD TO MD CONSULT 10/05/17 06:42 Consult to Wound/ET Nurse [CONS] Routine Reason For Exam: wound eval 10/05/17 07:56 Consult to Wound/ET Nurse [CONS] Urgent Reason For Exam: wound eval 10/06/17 12:59 Consult to Physician [CONS] Routine Consulting Provider: RAINE MOORE Reason For Exam: bilateral lower ext edema Place consult to:: Dr. Moore Notified:: office Phone number called:: [phone] Was contact made?: Yes If yes, spoke with:: Lizzeth Time called:: 14:59 Primary care physician: LOUIE THAYER Hospitalization Reason for admission: generalized anasarca Condition: Stable Hospital course: Patient is a 37-year-old male with diabetes who presents with bilateral lower extremity swelling as well as scrotal swelling. He states that about a month ago he noticed a blister on his left thigh. He said this burst and there was some clear drainage that followed. However the patient noted that swelling continued in the thigh and then in the groin and then both lower extremities. Today he states that he cannot walk due to the swelling in his groin and lower extremity. He denies fever at this time. Patient was started on unasyn and vancomycin and was seen by urology Nesbitt catheter placed secondary to bladder outlet obstruction. Echocardiogram was done but showed well-preserved ejection fraction. The patient was noted to have a hypoalbuminemia state which could be the reason for the fluid overload. I recommended an outpatient follow-up with urology and primary care physician and also with the urologist. The patient will be leaving with Nesbitt to leg bag also seen by urologist. Condition at time of discharge stable patient does have right lower extremity ulcer for which antibiotics was given no evidence of sepsis was noted in the hospital. She understands the need to follow up with the wound care center. His blood sugar did spike up at one time and this was corrected with IV fluids he is going to be compliant with his medications and discharge see promises. Family was also updated on the patient's request. Discharge diagnosis Hyperosmolar, Non Ketotic Hyperglycemia Scrotal cellulites DM-uncontrolled Anemia Hypoalbuminemia Generalized anasarca Acute cystitis Rt Leg ulcer Disposition: TO HOME OR SELFCARE Time spent for discharge: 35 mins Core Measure Documentation - Palliative Care Palliative Care/ Comfort Measures: Not Applicable - Core Measures Any of the following diagnoses?: none - VTE Discharge Requirements Deep Vein Thrombosis/Pulmonary Embolism Present on Admission: No Exam - Physical Exam Narrative exam: VITAL SIGNS: Reviewed. GENERAL: The patient appeared well nourished and normally developed. Vital signs as documented. HEAD: No signs of head trauma. EYES: Pupils are equal. Extraocular motions intact. EARS: Hearing grossly intact. MOUTH: Oropharynx is normal. NECK: No adenopathy, no JVD. CHEST: Chest with clear breath sounds bilaterally. No wheezes, rales, or rhonchi. CARDIAC: Regular rate and rhythm. S1 and S2, without murmurs, gallops, or rubs. VASCULAR: +2 Edema. Peripheral pulses normal and equal in all extremities. ABDOMEN: Soft, without detectable tenderness. No sign of distention. No rebound or guarding, and no masses palpated. Bowel Sounds normal. MUSCULOSKELETAL: Good range of motion of all major joints. Extremities without clubbing, cyanosis. +2edema. NEUROLOGIC EXAM: Alert and oriented x 3. No focal sensory or strength deficits. Speech normal. Follows commands. PSYCHIATRIC: Mood normal. SKIN: right lower ext ulcer - Constitutional Vitals: Temp Pulse Resp BP Pulse Ox 97.3 F L 81 18 133/92 100 10/07/17 08:12 10/07/17 08:12 10/07/17 08:12 10/07/17 08:12 10/07/17 08:12 Plan Activity: advance as tolerated, fall precautions Diet: diabetic Wound: per wound nurse instructions Special Instructions: record daily weights, record daily BP diary, record blood sugar diary Additional Instructions: follow at the wound care center Follow up with: LOUIE THAYER MD [Primary Care Provider] - 3-5 Days ROBERTO OAKES MD [Staff Physician] - 7 Days UNIQUE BAE MD [Staff Physician] - 7 Days Prescriptions: Insulin NPH/Regular [NovoLIN 70/30] 28 unit SQ BID 30 Days units traMADol [Ultram] 50 mg PO Q6HR PRN 10 Days tablet PRN Reason: Pain
[2017-10-07 16:07] VITALS: BP 146/103
== END 2017-10-07 17:00 | disposition home or self-care (01) | DRG 603 ==
LOC: ED 19:54 → 3A 23:16 → EDBD 23:16
PROVIDERS: ADMIT Internal Medicine; ATTEND Internal Medicine
DX: L03.314 Cellulitis of groin (principal); L97.919 Non-pressure chronic ulcer of unspecified part of right lower leg with unspecified severity; N30.00 Acute cystitis without hematuria; E87.0 Hyperosmolality and hypernatremia; N49.2 Inflammatory disorders of scrotum; N47.2 Paraphimosis; N50.89 Other specified disorders of the male genital organs; E88.09 Other disorders of plasma-protein metabolism, not elsewhere classified; D64.9 Anemia, unspecified; F17.200 Nicotine dependence, unspecified, uncomplicated; N32.0 Bladder-neck obstruction; E87.70 Fluid overload, unspecified; E87.5 Hyperkalemia; Z79.4 Long term (current) use of insulin; Z82.49 Family history of ischemic heart disease and other diseases of the circulatory system
CPT/HCPCS: 36415; 71046; 74177; 80048; 80053; 81001; 82805; 82947; 82962; 83036; 83735; 83880; 84100; 84443; 85025; 86140; 86592; 87086; 87806; 93306; 96374; 96375; A6250; J0295; J1170; J1650; J1815; J1940; J2270; J2405; J3370; J7030; J7040; J7050; Q9967

== ENCOUNTER 2017-10-14 13:38 | Outpatient (CLI) | payer OTHER ==
[2017-10-14] MEDS ORDERED: XYLOCAINE TOPICAL 4% TP ONE (13:56)
== END 2017-10-14 13:39 | disposition home or self-care (01) ==
LOC: WOUND 13:38
PROVIDERS: ATTEND Surgery
DX: E11.622 Type 2 diabetes mellitus with other skin ulcer (principal); L97.812 Non-pressure chronic ulcer of other part of right lower leg with fat layer exposed; I10 Essential (primary) hypertension; F17.200 Nicotine dependence, unspecified, uncomplicated
CPT/HCPCS: 11042; G0463

== ENCOUNTER 2017-10-21 13:18 | Outpatient (CLI) | payer OTHER ==
[2017-10-21] MEDS ORDERED: XYLOCAINE TOPICAL 4% TP ONE (14:00)
== END 2017-10-21 13:19 | disposition home or self-care (01) ==
LOC: WOUND 13:18
PROVIDERS: ATTEND Surgery
DX: E11.622 Type 2 diabetes mellitus with other skin ulcer (principal); L97.812 Non-pressure chronic ulcer of other part of right lower leg with fat layer exposed; F17.200 Nicotine dependence, unspecified, uncomplicated
CPT/HCPCS: 82962

== ENCOUNTER 2017-10-28 13:37 | Outpatient (CLI) | payer OTHER ==
[2017-10-28] MEDS ORDERED: XYLOCAINE TOPICAL 2% 5ML ONE (14:10)
[2017-10-28] MEDS ORDERED: XYLOCAINE TOPICAL 2% 5ML TP ONE (14:16)
== END 2017-10-28 13:38 | disposition home or self-care (01) ==
LOC: WOUND 13:37
PROVIDERS: ATTEND Surgery
DX: E11.622 Type 2 diabetes mellitus with other skin ulcer (principal); L97.812 Non-pressure chronic ulcer of other part of right lower leg with fat layer exposed; F17.200 Nicotine dependence, unspecified, uncomplicated

== ENCOUNTER 2017-11-04 13:20 | Outpatient (CLI) | payer OTHER ==
[2017-11-04] MEDS ORDERED: XYLOCAINE TOPICAL 2% 5ML ONE (13:31)
[2017-11-04] MEDS ORDERED: XYLOCAINE TOPICAL 2% 5ML TP ONE (14:37)
== END 2017-11-04 13:21 | disposition home or self-care (01) ==
LOC: WOUND 13:20
PROVIDERS: ATTEND Surgery
DX: E11.622 Type 2 diabetes mellitus with other skin ulcer (principal); L97.812 Non-pressure chronic ulcer of other part of right lower leg with fat layer exposed; F17.200 Nicotine dependence, unspecified, uncomplicated

== ENCOUNTER 2017-11-11 13:29 | Outpatient (CLI) | payer OTHER | END 2017-11-11 13:30 | disposition home or self-care (01) | LOC: WOUND 13:29 | PROVIDERS: ATTEND Surgery | DX: E11.622 Type 2 diabetes mellitus with other skin ulcer (principal); L97.812 Non-pressure chronic ulcer of other part of right lower leg with fat layer exposed; F17.200 Nicotine dependence, unspecified, uncomplicated | CPT/HCPCS: 99213; G0463 ==

== ENCOUNTER 2020-05-31 13:55 | Outpatient (CLI) | payer OTHER ==
--- NOTE | 2020-06-01 07:41 | Fluoroscopy Report ---
FLUOROSCOPY CYSTOGRAM VOIDING HISTORY: Urinary retention COMPARISON: 09/01/2018 cystogram. FINDINGS: 2 minutes of fluoroscopy time was utilized. 22 fluoroscopic images were saved. 250 cc of Cystografin was infused into the bladder through a Nesbitt catheter. There is normal filling of the bladder. No bladder filling defect is appreciated. Moderate bilateral vesicoureteral reflux wa s witnessed about this exam, left greater than right. No ureteral filling defect is appreciated. The Nesbitt catheter was removed for the voiding portion of this exam. The patient could only void a ve ry small amount of contrast under fluoroscopy. A very large post void residual is present. The urethr a is partially visualized and appears normal caliber and without focal abnormality. These findings were discussed with Dr. Spicer. It was decided to replace the Nesbitt catheter. The pa chencho tolerated the procedure without complication. IMPRESSION: Moderate bilateral vesicoureteral reflux was witnessed throughout this exam. No anatomic abnormality with the bladder is detected. There was however a very large post void residu al as described. Signer Name: Jarvis De La Cruz Jr, MD Signed: 06/01/2020 7:36 AM Workstation Name: [id number]
== END 2020-05-31 13:56 | disposition home or self-care (01) ==
LOC: FLUORO 13:55
PROVIDERS: ATTEND Urology
DX: N39.0 Urinary tract infection, site not specified (principal); E11.9 Type 2 diabetes mellitus without complications; Z79.899 Other long term (current) drug therapy; Z79.4 Long term (current) use of insulin; Z98.890 Other specified postprocedural states; Z83.3 Family history of diabetes mellitus; Z82.49 Family history of ischemic heart disease and other diseases of the circulatory system
CPT/HCPCS: 51600; 74455; Q9958